=== PATIENT | female | born 1970 | race Caucasian/White ===

== ENCOUNTER 2020-04-19 16:59 | Emergency (ER) | payer OTHER, SELFPAY ==
[2020-04-19 17:19] VITALS: BP 115/70; PULSE 71; RESP 16; TEMP 36.6; O2SAT 100
[2020-04-19] MEDS: SODIUM CHLORIDE 0.9% IV 1,000 ML 999 ML IV CONT (17:47)
[2020-04-19] MEDS: METOCLOPRAMIDE HCL INJ 10 MG/2 ML VIAL IV PUSH (17:48)
[2020-04-19] MEDS: KETOROLAC 30 MG/ML VIAL (*BKC) IV PUSH (17:48)
[2020-04-19] MEDS: diphenhydrAMINE HCl INJ 50 MG/ML VIAL 25 MG IV PUSH (17:48)
--- NOTE | 2020-04-19 18:06 | ED.GENADULT ---
HPI - General Adult General Chief complaint: Headache Stated complaint: MIGRAINE [id number] Time Seen by Provider: 04/19/20 17:29 History of Present Illness HPI narrative: Patient is a 49-year-old female who presents ER with migraine headache. Ongoing for 1 week. No new stressors or triggers that she can think of. Similar to previous migraine headaches in the past. Last one was 1 year ago. Has found no alleviating factors. Gradual onset, occasionally worsens and becomes sharp. Related Data Allergies Allergy/AdvReac Type Severity Reaction Status Date / Time No Known Allergies Allergy Mild Verified 07/05/15 18:00 Review of Systems Review of Systems: All systems reviewed & are unremarkable except as noted in HPI and below Constitutional: Constitutional: Denies chills and Denies fever(s) Eyes: Eyes: Denies change in vision and Denies photophobia ENT: Denies nasal congestion and Denies sore throat Neurologic: Reports headache(s), Denies focal weakness and Denies numbness PMFSH Past Medical History Medical History (Updated 04/19/20 @ 18:11 by Kuldip Nieto MD) Hypothyroidism Migraines Surgical History Surgical History (Updated 04/19/20 @ 18:10 by Kuldip Nieto MD) History of History of tubal ligation Social History Social History Gender identity (if verbalized by the patient): Female Exam Narrative: Exam Narrative: GENERAL: Well-appearing, well-nourished, and in no acute distress. HEAD: Normocephalic, atraumatic. EYES: PERRL and EOMI. ENT: Mucous membranes moist. CHEST: Clear to auscultation. No respiratory distress. HEART: Regular rate and rhythm. Normal peripheral pulses. EXTREMITIES: Normal range of motion. No edema. NEURO: Alert and oriented x3. PSYCH: Normal mood and affect. Course Course Emergency Course: Migraine resolved with Reglan/Benadryl/Toradol/IV fluid. Vital Signs Vital signs: Vital Signs Temperature 97.8 F 04/19/20 17:19 Pulse Rate 71 04/19/20 17:19 Respiratory Rate 16 04/19/20 17:19 Blood Pressure 115/70 04/19/20 17:19 Pulse Oximetry 100 04/19/20 17:19 Temperature 97.8 F 04/19/20 17:19 Pulse Rate 71 04/19/20 17:19 Respiratory Rate 16 04/19/20 17:19 Blood Pressure 115/70 04/19/20 17:19 Pulse Oximetry 100 04/19/20 17:19 Medical Decision Making Vital Signs Vital Signs: Vital Signs Temperature 97.8 F 04/19/20 17:19 Pulse Rate 71 04/19/20 17:19 Respiratory Rate 16 04/19/20 17:19 Blood Pressure 115/70 04/19/20 17:19 Pulse Oximetry 100 04/19/20 17:19 Temperature 97.8 F 04/19/20 17:19 Pulse Rate 71 04/19/20 17:19 Respiratory Rate 16 04/19/20 17:19 Blood Pressure 115/70 04/19/20 17:19 Pulse Oximetry 100 04/19/20 17:19 Discharge Plan Discharge Clinical Impression: Headache Patient Disposition: Home, Self-Care Condition: Stable Instructions: Migraine Headache (ED) Additional Instructions: Return the ER if you have chest pain or shortness of breath, you cannot keep down food or water, you have fever over 100.4 ?F, you have additional concerns. Follow-up/Referrals: Ernesto,MIRANDA Lozano [Primary Care Provider] - 1 Week
[2020-04-19 18:43] VITALS: BP 110/68; PULSE 72; RESP 16; O2SAT 100
== END 2020-04-19 18:44 | disposition home or self-care (01) ==
PROVIDERS: Emergency Provider Emergency Medicine; PCP Physician Assistant
DX: R51 Headache (principal); E03.9 Hypothyroidism, unspecified
CPT/HCPCS: 96361; 96374; 96375; 99284; J1200; J1885; J2765; J7030

== ENCOUNTER 2020-06-23 15:43 | Outpatient (CLI) | payer MEDICARE, MEDICAID, SELFPAY ==
--- NOTE | ~2020-06-23 | CT_ITS ---
EXAMINATION: CT soft tissue neck w con EXAM DATE: 06/23/2020 16:34 INDICATION: Cervical lymphadenopathy. TECHNIQUE: Spiral CT of the neck was performed following intravenous injection of 75 mL Omnipaque 350 . Axial, coronal and sagittal images were reviewed. The dose-length product (DLP) for this examinat ion was 555.93 mGy-cm. The exposure was tailored according to patient size (auto mA exposure control ), and iterative reconstruction (ASIR) was used as additional dose reduction technique. There is no prior study for comparison. FINDINGS: The thyroid gland is unremarkable. The submandibular and parotid glands are symmetric. rway is patent. No cervical lymphadenopathy. The superior mediastinum is unremarkable. Parapharyng eal and pre-glottic fat planes are preserved. The opacified vasculature is patent. The orbits are unremarkable. Visualized sinuses and mastoid air cells are well aerated. Lung apices are clear. Some fluid in the pericardial recess. Moderate loss of the disc heights at C4-5 and 5-6. IMPRESSION: No cervical lymphadenopathy. Reviewed, dictated and finalized at location B.
== END 2020-06-23 15:44 | disposition home or self-care (01) ==
PROVIDERS: PCP Physician Assistant; Visit Provider Internal Medicine Medical Oncology
DX: R59.1 Generalized enlarged lymph nodes (principal); E01.0 Iodine-deficiency related diffuse (endemic) goiter
CPT/HCPCS: 70491; Q9967

== ENCOUNTER 2021-01-15 10:28 | Outpatient (CLI) | payer MEDICARE, MEDICAID, SELFPAY ==
--- NOTE | ~2021-01-15 | US_ITS ---
EXAMINATION: US venous doppler [facility] DATE: 01/15/2021 11:10 INDICATION: Bilateral lower limb pain TECHNIQUE: Grayscale ultrasound images without and with compression and Doppler ultrasound images of the bilateral lower extremity veins were obtained. COMPARISON: None. FINDINGS: The visualized portions of right common femoral vein, profunda (deep) femoral vein, femoral vein, pop liteal vein, posterior tibial veins, peroneal veins, gastrocnemius vein and greater saphenous vein ou tflow are patent. The visualized portions of left common femoral vein, profunda femoral vein, femoral vein, popliteal v ein, posterior tibial veins, peroneal veins, gastrocnemius vein and greater saphenous vein outflow ar e patent. IMPRESSION: 1. No deep venous thrombosis in either lower limb. Reviewed, dictated and finalized at location A.
== END 2021-01-15 10:29 | disposition home or self-care (01) ==
PROVIDERS: PCP Physician Assistant; Visit Provider Physician Assistant
DX: M79.604 Pain in right leg (principal)
CPT/HCPCS: 93970

== ENCOUNTER 2021-02-10 08:37 | Emergency (ER) | payer MEDICARE, MEDICAID, SELFPAY ==
[2021-02-10 08:43] VITALS: BP 124/65; PULSE 76; RESP 18; TEMP 36.5; O2SAT 100
--- NOTE | 2021-02-10 09:32 | ED.EYEPROB ---
HPI - Eye Problem General Chief complaint: Eye Problems Stated complaint: Vision issues with right eye Time Seen by Provider: 02/10/21 09:05 Source: patient Mode of arrival: ambulatory Limitations: no limitations History of Present Illness HPI Narrative: This is a 50-year-old female that presents to the emergency department for vision changes to the left eye since yesterday. Reports later in the afternoon she noted an area of haziness in the middle of her vision that looks like a spider with. Reports she thought that she got something in her eye, but washed out her eye and this defect persisted. Denies any certain injuries or pain to the eye. No redness or discharge. Reports when she woke up this morning this persisted which prompted her to be seen. Denies fever, double vision, or vomiting. Related Data Allergies Allergy/AdvReac Type Severity Reaction Status Date / Time No Known Allergies Allergy Mild Verified 02/10/21 08:46 Review of Systems Review of Systems: Narrative: CONSTITUTIONAL: Denies fever EYES: Reports visual changes. Denies redness, or discharge. NEUROLOGIC: Denies headache, numbness, or weakness. All systems reviewed & are unremarkable except as noted in HPI and below PMFSH Past Medical History Medical History (Updated 02/10/21 @ 11:05 by Li Islas PA-C) Hypothyroidism Migraines Surgical History Surgical History (Updated 04/19/20 @ 18:10 by Kuldip Nieto MD) History of History of tubal ligation Social History Social History Gender identity (if verbalized by the patient): Female Exam Narrative: Exam Narrative: GENERAL: Well-appearing, well-nourished, and in no acute distress. HEAD: Normocephalic, atraumatic. EYES: PERRLA and EOMI. Eyelid everted, no foreign bodies noted. No conjunctival injection or discharge. Visual acuity 20/30 in the left and 20/40 in the right. Pressure in the left 10, 14 in the right. No fluorescein stain uptake. No obvious abnormalities on funduscopic exam ENT: Nares clear, no rhinorrhea or epistaxis. Mucous membranes moist. Oropharynx without tonsillar hypertrophy exudate or other lesions. Bilateral TMs pearly diamond non-bulging NECK: Supple. No adenopathy or masses. No carotid bruits or JVD CHEST: Clear to auscultation. No respiratory distress. No wheezes rales or rhonchi HEART: Regular rate and rhythm. No murmur heard. Normal peripheral pulses. EXTREMITIES: Normal range of motion. No edema. SKIN: Warm, dry, no rash. NEURO: No focal deficits. Alert and oriented x3. Cranial nerves II through XII grossly intact PSYCH: Normal mood and affect Course Consultations Consultation #1: Spoke with Dr. Merrill with ophthalmology at [facility] who will follow up with patient in clinic at 1:30 this afternoon. Date: 02/10/21 Time: 11:01 Vital Signs Vital signs: Vital Signs Temperature 97.7 F 02/10/21 08:43 Pulse Rate 76 02/10/21 08:43 Respiratory Rate 18 02/10/21 08:43 Blood Pressure 124/65 02/10/21 08:43 Pulse Oximetry 100 02/10/21 08:43 Temperature 97.7 F 02/10/21 08:43 Pulse Rate 76 02/10/21 08:43 Respiratory Rate 18 02/10/21 08:43 Blood Pressure 124/65 02/10/21 08:43 Pulse Oximetry 100 02/10/21 08:43 MDM - Eye Problem MDM Narrative Medical decision making narrative: Patient presents the emergency department for floater present in the left eye since yesterday. She is afebrile and nontoxic-appearing. Vitals are normal. Visual acuity is 20/30 in the left eye and 20/40 in the right eye. Eye pressures are normal. No obvious abnormalities on funduscopic exam. Spoke with Dr. Merrill with ophthalmology at [facility] who will follow up with patient in clinic at 1:30 this afternoon. Patient instructed to follow-up at scheduled visit this afternoon Critical Care Time Critical Care Time Critical Care Time: No Discharge Plan Discharge Clinical Impression: Visual floaters Qualifiers: Laterality: left Qualified Code(
[2021-02-10 11:11] VITALS: BP 128/79; PULSE 78; RESP 15; O2SAT 100
== END 2021-02-10 11:12 | disposition home or self-care (01) ==
PROVIDERS: Emergency Provider Emergency Medicine; PCP Physician Assistant
DX: H43.392 Other vitreous opacities, left eye (principal); E03.9 Hypothyroidism, unspecified
CPT/HCPCS: 99281; A9270

== ENCOUNTER 2024-07-13 17:22 | Emergency (ER) | payer MEDICARE, MEDICAID, OTHER, SELFPAY ==
--- NOTE | ~2024-07-13 | CT_ITS ---
Noncontrast CT scan of the lumbar spine CLINICAL HISTORY: Back pain TECHNIQUE: Axial noncontrast imaging of the lumbar spine was performed. Sagittal and coronal reformat renea images were constructed. Dose reduction technique was used on this scan by utilizing automated ex posure control and iterative reconstruction technique. The dose-length product (DLP) was 768.21 mGy-c m. FINDINGS: There is no fracture or subluxation of the lumbar spine. Vertebral bodies maintain normal h eight and alignment. Disc spaces are preserved. L2-L3, there is minimal disc bulge. No other disc bulge or herniation seen the remaining lumbar level s. Probable minimal bilateral neural foraminal narrowing at L4-L5. Remaining neural foramina are pres erved. No spinal canal stenosis evident. Bilateral iliac vein stents are present. Paravertebral soft tissues are otherwise unremarkable. Impression: No fracture or subluxation. Minimal degenerative spondylosis. Bilateral common iliac vein stents. Reviewed, dictated and finalized at [facility]. Impression: No fracture or subluxation. Minimal degenerative spondylosis. Bilateral common iliac vein stents.
[2024-07-13 17:45] VITALS: BP 127/71; PULSE 64; RESP 16; TEMP 36.5; O2SAT 98
[2024-07-13 19:29] LABS: Add Urine Microscopic? NO; Appearance Urine Clear (Clear); Bilirubin Urine Negative (Negative); Blood Urine Negative (Negative); Color Urine Yellow (Yellow); Glucose Urine UA Negative (Negative); Ketones Urine Trace mg/dL (Negative); Leukocyte Esterase Ur Negative LEU/UL (Negative); Nitrate Urine Negative (Negative); Protein Urine Negative (Negative); Specific Grav Ur 1.028 (1.001-1.035)
--- NOTE | 2024-07-13 20:45 | ED.BACK ---
HPI - Back Pain/Injury General Chief Complaint: Back Pain/Injury Stated Complaint: lower LEFT abd 1 month, now back pain Time Seen by Provider: 07/13/24 20:35 Source: patient Mode of arrival: ambulatory Limitations: no limitations History of Present Illness HPI Narrative: This is a 53-year-old female who presents to the ED for chief complaint of lower back pain x2 days. Reports that she had been having on and off abdominal/flank pain over the past several weeks but recently transitioned into more of just a lower back pain. States that the pain will sometimes radiate into bilateral buttocks. Denies injuries. Does note that the pain worsens in certain positions and when she is walking. Denies urinary symptoms, nausea, vomiting, fevers, chills, numbness, weakness, bowel or bladder dysfunction. Related Data Allergies Allergy/AdvReac Type Severity Reaction Status Date / Time No Known Allergies Allergy Mild Verified 02/10/21 08:46 Review of Systems Review of Systems: All systems as dictated in HPI PMFSH Past Medical History Medical History (Updated 07/14/24 @ 00:00 by Bree Pereyra) Hypothyroidism Migraines Surgical History Surgical History (Updated 04/19/20 @ 18:10 by Kuldip Nieto MD) History of History of tubal ligation Social History Social History Gender identity (if verbalized by the patient): Female Exam Narrative: GENERAL: Well-appearing, well-nourished, and in no acute distress. HEAD: Normocephalic, atraumatic. EYES: PERRLA and EOMI. ENT: Nares clear, no rhinorrhea or epistaxis. Mucous membranes moist. Oropharynx without tonsillar hypertrophy exudate or other lesions. NECK: Supple. No adenopathy or masses. CHEST: No respiratory distress. Clear to auscultation. No wheezes rales or rhonchi HEART: Regular rate and rhythm. No murmur heard. Normal peripheral pulses. ABDOMEN: Soft, nontender, nondistended, normal active bowel sounds. MSK: Normal range of motion. No edema. SKIN: Warm, dry, no rash. NEURO: Alert and oriented x4. No focal deficits. PSYCH: Normal mood and affect. Course Vital Signs Vital signs: Vital Signs Temperature 97.7 F 07/13/24 17:45 Pulse Rate 64 07/13/24 17:45 Respiratory Rate 16 07/13/24 17:45 Blood Pressure 127/71 07/13/24 17:45 Pulse Oximetry 98 07/13/24 17:45 Oxygen Delivery Room Air 07/13/24 17:45 Temperature 97.7 F 07/13/24 17:45 Pulse Rate 61 07/13/24 22:39 Respiratory Rate 14 07/13/24 22:39 Blood Pressure 132/74 07/13/24 22:39 Pulse Oximetry 100 07/13/24 22:39 Oxygen Delivery Room Air 07/13/24 17:45 MDM - Back Pain/Injury MDM Narrative Medical decision making narrative: This is a 53-year-old female who presents to the ED for chief complaint of several days of lower back pain. It is musculoskeletal in nature. Patient's vitals are normal. She is exhibiting no red flag back signs on exam today. Lumbar spine CT shows degenerative disc disease but no acute fracture or subluxation of the spine. She has required no pain medications here. Rx for naproxen given for DDD Pt will be discharged in stable condition. Return precautions given and supportive measures discussed. Pt is understanding and agreeable with plan for discharge and follow-up with PCP. Differential Diagnosis Differential diagnosis: Likely lumbar radiculopathy, sciatica, strain of lumbar region, pyelonephritis, AAA and discitis Lab Data Labs: Lab Results 07/13/24 Range/Units 19:16 Urine Color Yellow (Yellow) Urine Appearance Clear (Clear) Urine pH 6.0 (5.0-9.0) Ur Specific [place] 1.028 (1.001-1.035) Urine Protein Negative (Negative) mg/dL Urine Glucose (UA) Negative (Negative) mg/dL Urine Ketones Trace H (Negative) mg/dL Ur Blood (Man) Negative (Negative) Urine Nitrate Negative (Negative) Urine Bilirubin Negative (Negative) Urine Urobilinogen 1.0 (<2.0) mg/dL Leukocyte Esterase Rfl Negative (Negative) NATHALY/UL Discharge Plan Discharge Clinical Impression: Degenerative disc disease, lumbar Patient Disposition: Home, Self-Care Condition: Stable Instructions: Antibiotic Form Additional Instructions: Your exam and imaging today do show degenerative discs up in the spine. No emergent findings on the imaging. Please take naproxen twice per day and Tylenol every 6 hours as needed for pain control. Follow-up with PCP on this issue. If you have any new or worsening symptoms please return to the ER for further evaluation. Prescriptions: New naproxen 500 mg tablet 500 mg PO BID PRN (Reason: pain) Qty: 30 0RF Follow-up/Referrals: Ernesto,MIRANDA Lozano [Non-Staff] - Time of Disposition: 22:55
[2024-07-13 22:39] VITALS: BP 132/74; PULSE 61; RESP 14; O2SAT 100
== END 2024-07-13 22:45 | disposition home or self-care (01) ==
PROVIDERS: Preventive Medicine Aerospace Medicine; Emergency Provider Physician Assistant
DX: M51.369 Other intervertebral disc degeneration, lumbar region without mention of lumbar back pain or lower extremity pain (principal); E03.9 Hypothyroidism, unspecified
CPT/HCPCS: 72131; 81003; 99284